=== PATIENT | male | born 1945 | race African-American/Black ===

== ENCOUNTER → 2017-01-09 08:28 | Outpatient (CLI) | payer MEDICARE, BC ==
[2015-08-05 10:38] VITALS: BMI 33.0
[~2017-01-09 08:28] MED LIST: ALEVE220 MG PO; ASPIRIN EC81 M1 PO; BACTROBAN NASAL1 GM NASAL; ELIQUIS2.5 MG PO; FISH OIL 1,0001 CA1 PO; FORTAMET500 MG/BOT PO; LOTREL 10/20 CA1 CAP PO; MULTIPLE VITAMI1 TA1 PO; OXYCODONE HCL5 MG PO; TOPROL XL25 MG PO
== END | disposition home or self-care (01) ==
LOC: D.US 08:28
DX: R94.5 Abnormal results of liver function studies (principal)

== ENCOUNTER 2017-01-16 09:20 | Emergency (ER) | payer MEDICARE, BC ==
[2015-08-05 10:38] VITALS: BMI 33.0
== END 2017-01-16 21:49 | disposition home or self-care (01) ==
LOC: D.ER 09:20
DX: J20.9 Acute bronchitis, unspecified (principal); J06.9 Acute upper respiratory infection, unspecified; E11.9 Type 2 diabetes mellitus without complications; I10 Essential (primary) hypertension

== ENCOUNTER → 2017-01-30 08:35 | Outpatient (CLI) | payer MEDICARE, BC ==
[2015-08-05 10:38] VITALS: BMI 33.0
== END | disposition home or self-care (01) ==
LOC: D.CT 08:35
DX: K76.0 Fatty (change of) liver, not elsewhere classified (principal)

== ENCOUNTER 2018-01-26 18:30 | Emergency (ER) | payer MEDICARE, BC ==
[2015-08-05 10:38] VITALS: BMI 33.0
[2018-01-26 20:33] LABS: APPEARANCE CLEAR (CLEAR); BILIRUBIN NEGATIVE (NEGATIVE); COLOR YELLOW (YELLOW); GLUCOSE NEGATIVE (NEGATIVE); KETONE NEGATIVE (NEGATIVE); NITRITE NEGATIVE (NEGATIVE); PROTEIN NEGATIVE (NEGATIVE); SPECIFIC GRAVITY 1.015 (1.005-1.020); UROBILINOGEN NORMAL (NORMAL)
[2018-01-26 20:44] LABS: BASOPHILS 0.2 % (0-2); EOSINOPHILS 0.9 % (0-7); HEMATOCRIT 41.1 % (42.0-54.0); HEMOGLOBIN 13.1 g/dL (13.5-17.5); IMMATURE GRANULOCYTES 0.2 % (0-5); LYMPHOCYTES 27.4 % (15-50); MCHC 31.9 g/dL (31.0-37.0); MCV 81.5 fL (80.0-100.0); MEAN PLATELET VOLUME 8.7 fL (7.4-10.4); MONOCYTES 8.3 % (2-11); PLATELET COUNT 122 10x3/uL (130-400); RBC 5.04 10x6/uL (4.20-6.10); RDW 15.4 % (11.5-14.5); WBC 5.6 10x3/uL (4.8-10.8)
[2018-01-26 21:02] LABS: ANION GAP 13.2 mmol/L (8-16); BILIRUBIN - TOTAL 0.4 mg/dL (0.2-1.3); CALCIUM 9.4 mg/dL (8.5-10.1); CARBON DIOXIDE 27.4 mmol/L (21.0-32.0); POTASSIUM - SERUM 4.6 mmol/L (3.5-5.1); PROTEIN - SERUM 7.8 g/dL (6.4-8.2)
== END 2018-01-26 22:46 | disposition home or self-care (01) ==
LOC: D.ER 18:30
PROVIDERS: Emergency Medicine
DX: N20.1 Calculus of ureter (principal); E11.9 Type 2 diabetes mellitus without complications; I10 Essential (primary) hypertension

== ENCOUNTER → 2018-01-30 11:03 | Outpatient (CLI) | payer MEDICARE, BC ==
[2015-08-05 10:38] VITALS: BMI 33.0
[~2018-01-30 11:03] MED LIST changes: +HYDROCODON-ACE1 EAC7 PO; +INDOCIN25 MG PO; +KEFLEX500 MG PO; +LEVAQUIN500 MG PO
== END | disposition home or self-care (01) ==
LOC: D.RAD 11:03
DX: N20.0 Calculus of kidney (principal)

== ENCOUNTER 2018-02-01 05:08 | Day surgery (SDC) | payer MEDICARE, BC ==
[~2018-02-01] VITALS: Ht 182.9 cm; Wt 104.3 kg
--- NOTE | ~2018-02-01 | OP ---
PATIENT NAME: REAGAN MURRELL MEDICAL RECORD: [id number] :43 [facility] DATE: SURGEON: ALEJANDRO WILLIS MD DATE OF OPERATION: 02/01/2018 SURGEON: Alejandro Willis MD ANESTHESIA: MAC by Ina Samano CRNA PREOPERATIVE DIAGNOSIS: Right renal stone, 11 mm. PROCEDURE: Right extracorporeal shockwave lithotripsy (ESWL) times 3000 shocks. FINDINGS: Radiodense right renal stones. SPECIMENS: None. ESTIMATED BLOOD LOSS: None. CLINICAL HISTORY: This is a 72-year-old male with a previous history of right renal colic due to an 11-mm renal stone. Earlier this morning, he had a right ureteral stent inserted. Today, he is going to have lithotripsy. Since he was already given antibiotics earlier this morning, we did not give him any further antibiotics. DESCRIPTION OF PROCEDURE: The patient was placed on the treatment table. The stone was targeted in 2 planes. 3000 shocks were given to the stone. It was seen to fragment somewhat. The patient was then taken off the table and he will be sent home for follow up in 2 weeks. TRANSINT:[id number] Voice Confirmation ID: [id number] DOCUMENT ID: [id number] ALEJANDRO WILLIS MD at 1544 CC: [id number] DICTATION DATE: 02/01/18 1441 VACUUM DRUM DRIER OPERATOR: 02/01/18 1451 REG [facility] [address] [place] [address]
--- NOTE | ~2018-02-01 | OP ---
PATIENT NAME: REAGAN MURRELL MEDICAL RECORD: [id number] :43 LOCATION:D.[facility] ADMISSION DATE: SURGEON: PRASANNA WILLIS MD DATE OF OPERATION: 02/01/2018 SURGEON: Prasanna Willis MD ANESTHESIA: General anesthesia by Jacob Arechiga CRNA. PREOPERATIVE DIAGNOSIS: An 11 mm right renal stone. PROCEDURES: Cystoscopy, right retrograde pyelogram, right ureteral stent insertion, 6-[place] Islander x 26 cm with string attached. 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 Single ureteral orifices bilaterally. No bladder tumors. BLOOD LOSS: None. CLINICAL HISTORY: This is a 72-year-old male who presented to the Emergency Room with acute right flank pain due to an 11-mm stone obstructing the right UP junction. This was seen on the CT scan. There is also a 2-mm stone in the left kidney. He has not previously had kidney stones. He does not have any voiding symptoms of BPH. He comes today to have a right ureteral stent insertion. Later today he will have a right lithotripsy. HE IS ALLERGIC TO MORPHINE. He was given Ancef 2 grams IV authorization representative to the OR. DESCRIPTION OF PROCEDURE: The patient was given induction of general anesthesia. He was then placed into dorsal lithotomy position and prepped and draped. A 21-[place] Islander cystoscope with 30-degree lens was used for visualization. The penile urethra was normal. The prostate showed trilobar hyperplasia with a tall bladder neck. He has single ureteral orifices in the bladder. No bladder tumors were seen. On fluoroscopy, we identified a large shadow within the bowel gas that could be the stone. In order to confirm it, we performed a retrograde pyelogram. Diluted contrast was injected into the right ureteral orifice using an open-ended ureteral catheter. No hydronephrosis was seen. The suspected stone was actually the stone within the renal pelvis. We then inserted a guidewire up to the renal pelvis through the lumen of the ureteral catheter. The ureteral catheter was then removed entirely. This stent was inserted over the wire. Once the stent was in correct position, the wire was entirely removed. The distal end of the stent was pushed into the bladder using the pusher. The string on the distal end of the stent is maintained and it was hanging out of the urethra. We will facilitate removal in the future. The bladder was emptied Mckeon through the scope and then the scope was removed. The patient was awakened and brought to the recovery room. Later today, he will have lithotripsy. TRANSINT:[id number] Voice Confirmation ID: [id number] DOCUMENT ID: [id number] OPERATIVE REPORT [id number] REAGAN MURRELL, PRASANNA Rosales MD at 1016 CC: [id number] DICTATION DATE: 02/01/18 08 SECURITY TEST ENGINEER: 02/01/18 1003 REG [place] [id number] [place] [id number]
[~2018-02-01 05:08] MED LIST changes: -HYDROCODON-ACE1 EAC7 PO; -INDOCIN25 MG PO; -KEFLEX500 MG PO; -LEVAQUIN500 MG PO
[2018-02-01 05:59] LABS: HEMATOCRIT 39.8 % (42.0-54.0); HEMOGLOBIN 12.9 g/dL (13.5-17.5); MCH 26.2 pg (26.0-34.0); MCHC 32.4 g/dL (31.0-37.0); MCV 80.9 fL (80.0-100.0); MEAN PLATELET VOLUME 9.2 fL (7.4-10.4); RBC 4.92 10x6/uL (4.20-6.10); RDW 15.2 % (11.5-14.5); WBC 3.7 10x3/uL (4.8-10.8)
[2018-02-01 06:11] LABS: ANION GAP 14.5 mmol/L (8-16); CALCIUM 9.3 mg/dL (8.5-10.1); CREATININE - SERUM 1.7 mg/dL (0.6-1.3); POTASSIUM - SERUM 4.5 mmol/L (3.5-5.1)
[2018-02-01 06:32] VITALS: BP 139/78; Ht 182.9 cm; Wt 104.3 kg
== END 2018-02-01 15:15 | disposition home or self-care (01) ==
LOC: D.OPS 05:08 → D.PAN 07:30 → D.OPS 07:30
PROVIDERS: Anesthesiology
DX: N20.0 Calculus of kidney (principal); I10 Essential (primary) hypertension; E11.9 Type 2 diabetes mellitus without complications; Z01.812 Encounter for preprocedural laboratory examination

== ENCOUNTER 2018-02-09 16:46 | Inpatient (IN) | payer MEDICARE, BC ==
[~2018-02-09] VITALS: Ht 182.9 cm; Wt 104.5 kg
--- NOTE | ~2018-02-09 | OP ---
PATIENT NAME: REAGAN MURRELL MEDICAL RECORD: [id number] :43 LOCATION:D[facility] ADMISSION DATE:02/09/18 SURGEON: ALEJANDRO WILLIS MD DATE OF OPERATION: 02/14/2018 SURGEON: Alejandro Willis MD ANESTHESIA: General anesthesia by Giovany Calvin MD. DIAGNOSES: Right renal stone of 11 mm, right pyelonephritis. PROCEDURES: Cystoscopy, right ureteral stent removal, right percutaneous nephrolithotomy. SPECIMENS: 1. Right ureteral stent. 2. Right renal stone fragments. ESTIMATED BLOOD LOSS: Minimal. CLINICAL HISTORY: This is a 73-year-old male, who initially presented with right flank pain due to a large 11-mm stone obstructing his right UP junction. He had a right ureteral stent inserted and then he underwent right ESWL of the stone. He has not passed any stone fragments out. He came to the hospital with fevers, chills, rigors and a UTI consistent with pyelonephritis of the right side. I obtained a KUB and it showed multiple stone fragments within the kidney, but he really did not have any reduction of the stone burden. Because he is infected now and his stent and the stones are infected, the aim is to get rid of all the infected foreign bodies. He is currently on IV Levaquin. PROCEDURE IN DETAIL: Earlier today, the patient had a right nephroureteral access performed by interventional radiology. The aim is to pull the distal end of the nephroureteral catheter out of the meatus of the penis, so that our wire when we insert it from above will actually come out through the penis and we can clamp it to prevent loss of the tract access. Therefore, the patient was given induction of general anesthesia in supine position. He was then prepped and draped, and rigid cystoscopy was performed. The stent was seen as well as the nephroureteral stent that was placed by interventional radiology. Grasping forceps were used to pull the distal end of the nephroureteral stent out through the penile meatus. We then put the patient into the prone position on the Jamal frame. All pressure points were padded. He was then prepped and draped. The nephroureteral catheter was accessed by placing an Amplatz Super Stiff wire down to its lumen. Once the distal end of it came out through the penile meatus, then the circulating nurse clamped it with a hemostat to prevent loss of the tract. The nephroureteral catheter was then removed entirely and discarded. A small incision was made on either side of the Amplatz Super Stiff wire. A dual-lumen catheter was then placed over the wire and put into the proximal ureter. Through the second lumen of the dual-lumen catheter, we inserted a Sensor wire down to the bladder. Once the wires were in place, the dual lumen catheter was removed, leaving the Sensor wire and the Super Stiff wire in place. We clamped the Sensor wire to the drape to serve as a safety wire. We then used the NephroMax balloon dilator to dilate or tracked along the Super Stiff wire, which we used as our working wire. The balloon was inflated to 20 atmospheres of pressure and the working sheath was placed down to the UP junction level. The balloon was then deflated and completely removed. We OPERATIVE REPORT [id number] REAGAN MURRELL replaced the nephroscope down and immediately saw the stone fragments. These were removed using grasping forceps. Also some of the larger ones were broken down using the [place] LithoClast ultrasonic modality. As we gradually fei our working sheath back, we saw more stone fragments and these were also removed either with the ultrasound modality or with the grasping forceps. Finally, we had no further stone specimens. The stent was removed entirely by pulling it out using the grasping forceps and out through the nephrostomy tube access. The stent was sent to pathology as a separate specimen for identification only. Once we could see no further stones on either with nephroscopy or fluoroscopy, then we placed a 24-N[place]ibian Malecot catheter down the nephrostomy tube to serve as our drainage nephrostomy tube. The safety wire was completely removed. The Super Stiff wire, which had a hemostat on it distal to the penile meatus, was completely removed by pulling it down below. Once we saw the Malecot wings fully expand on the nephrostomy tube, the working sheath was completely removed also. The nephrostomy tube was tied down to the skin using a 2-0 nylon suture. Dressings were applied and the nephrostomy tube was put to bag drainage. The patient was awakened and brought to the recovery room. TRANSINT:[id number] Voice Confirmation ID: [id number] DOCUMENT ID: [id number] ALEJANDRO WILLIS MD at 1947 CC: [id number] DICTATION DATE: 02/14/18 174 DIRECTOR OF ANCILLARY SERVICES: 02/14/18 1816 ADM IN [place] [id number] [place] [id number]
--- NOTE | ~2018-02-09 | HEMODYNAMI ---
PATIENT:REAGAN MURRELL MEDICAL RECORD: [id number] : 43 LOCATION:D.[place] D.2224 ADMISSION DATE: 02/09/18 Generatedon:02/14/20188:48 Patient name: REAGAN MURRELL Patient #: [id number] SSN: : 1945 Date of study: 02/14/2018 Page: Of Hemodynamic Procedure Report Patient Data Patient Demographics Procedure consent was obtained First Name: REAGAN Gender: Male Last Name: NYASIA : 1945 Middle Initial: JEREMY Age: 73 year(s) Patient #: [id number] Race: Black Additional ID: [id number] Contact details Address: [address] [place] [address] State: [place] City: [place] Zip code: [address] Admission Admission Data Admission Date: 02/09/2018 Admission Time: 20:58 Room #: D.2224 Procedure Procedure Types Cath Procedure Peripheral Cath Diagnostic Procedure Nephro Perc Neph Uret Cath Procedure Description Procedure Date Procedure Date: 02/14/2018 Procedure Start Time: 8:30 Procedure End Time: 8:47 Procedure Staff Name Function Emanuel Ball MD Performing Physician Elisa Asencio RT Monitor Yuli Bartlett RN Nurse Brian Mayer RT Scrub Procedure Data Cath Procedure Fluoroscopy Diagnostic fluoroscopy Total fluoroscopy Time: 2.2 time: 2.2 min min Diagnostic fluoroscopy Total fluoroscopy dose: 24 dose: 24 mGy mGy Contrast Material Contrast Material Type Amount (ml) Isovue 300 15 Procedure Medications Medication Administration Route Dosage Lidocaine 1% added to field 20 Heparin Flush Bag added to field 1 bags (1000units/500ml NS) Levaquin I.V.P.B 500 mg Versed I.V. 2 mg Fentanyl I.V. 50 mcg Hemodynamics Rest Pre Cath Intra NCS Post Cath Vital Signs Time Heart Resp SPO2 etCO2 NIBP (mmHg) Rhythm Pain Sedation Rate (ipm) (%) (mmHg) Status Level (bpm) 8:05:38 52 43 99 22.6 No Cuff 2 0 (11) 10(A) degree , No AV pain Block Type II 8:09:37 39 16 100 28.6 No Cuff 2 0 (11) 10(A) degree , No AV pain Block Type II 8:13:37 41 21 99 29.4 No Cuff 2 0 (11) 10(A) degree , No AV pain Block Type II 8:17:37 44 20 100 29.4 No Cuff 2 0 (11) 10(A) degree , No AV pain Block Type II 8:21:36 61 26 99 28.6 148/76(0) 2 0 (11) 10(A) degree , No AV pain Block Type II 8:25:36 49 21 98 26.3 142/74(0) 2 0 (11) 10(A) degree , No AV pain Block Type II 8:29:36 45 23 98 24.1 No Cuff 2 0 (11) 8(A) degree , No AV pain Block Type II 8:31:38 41 22 98 30.1 138/68(92) 2 0 (11) 8(A) degree , No AV pain Block Type II 8:36:38 48 18 99 30.9 Measuring NSR 0 (11) 8(A) , No pain 8:37:08 41 18 99 31.6 116/64(98) NSR 0 (11) 8(A) , No pain 8:41:16 40 19 98 28.6 106/70(86) NSR 0 (11) 8(A) , No pain 8:45:26 40 19 99 29.4 124/85(112) NSR 0 (11) 8(A) , No pain Medications Time Medication Route Dose Verified Delivered Reason Notes Effect iveness by by 7:32:48 Lidocaine 1% added 20ml to vial field 7:33:04 Heparin Flush added 1 Bag to bags (1000units/500ml field NS) 8:25:43 Levaquin I.V.P.B 500mg Emanuel Roldan Per Quinn Bartlett RN protocol 8:28:44 Versed I.V. 2 mg Emanuel Roldan for Mostly Quinn Bartlett RN sedation sleeping @ 8:32:41 8:29:00 Fentanyl I.V. 50 Emanuel Roldan for Mostly mcg Quinn Bartlett RN sedation sleeping @ 8:32:36 Procedure Log Time Note 7:31:58 Brian Mayer RT (R) (CV) sent for patient. Start room use. 7:32:15 Use device set IR Diagnostic 7:32:19 Sterile Angiographic Pack opened to sterile field. 7:32:20 Bag Decanter (2002S) opened to sterile field. 7:32:48 Lidocaine 1% 20ml vial added to field was administered by ; ; 7:33:04 Heparin Flush Bag (1000units/500ml NS) 1 bags added to field was administered by ; ; 7:34:30 KIT, INTRODUCER ACCUSTICK II W/C ([id number]) opened to sterile field. 7:38:45 Time tracking: Regular hours 7:38:54 Plan of Care:Hemodynamics will remain stable., Cardiac rhythm will remain stable., Comfort level will be maintained., Respiratory function will remain adequate., Patient/ family verbilizes understanding of procedure., Procedure tolerated without complication., Recovers from procedure without complications.. 7:39:39 Patient received from Med/Surg to IR Alert and oriented. Tansferred to table in Prone position. 7:39:44 Correct patient and procedure confirmed by team. 7:39:55 Signed procedure consent form obtained from patient. 7:39:56 ECG and BP/O2 sat monitors applied to patient. 7:39:58 Full Disclosure recording started 7:39:59 7:40:05 H&P Date Dictated: 02/14/2018 Within 30 days and on chart.. 7:40:07 Pre-procedure instructions explained to patient. 7:40:07 Pre-procedure instructions explained to patient. 7:40:09 Pre-op teaching completed and patient verbalized understanding. 7:40:10 Family in waiting room. 7:40:13 Patient NPO since Midnight. 7:40:20 Is the patient allergic to Iodine/contrast media? No. 7:40:22 Is patient on blood thinner?No 7:40:23 Patient diabetic? Yes. 7:40:30 If diabetic: On Metformin? No 7:40:31 7:40:32 ----Pre-sedation anethsthesia assessment.---- 7:40:35 Previous problem with sedation/anesthesia? No ? 7:40:37 Snore? Yes 7:40:41 Sleep apnea? No 7:40:44 Sleep apnea? No 7:40:48 Deviated septum? No 7:40:52 Opens mouth fully? Yes 7:40:53 Sticks out tongue? Yes 7:40:55 Airway obstruction? No ? 7:40:58 Dentures? Yes out 7:41:00 7:41:08 Use device set IR Diagnostic 7:41:17 Bag Decanter () opened to sterile field. 7:41:19 Sterile Angiographic Pack opened to sterile field. 7:59:03 IV patent on arrival in right antecubital with 0.9% NaCl at KVO. 7:59:05 Sharps counted by scrub and verified by R.NTruong 7:59:05 Alarms reviewed by R. N. 7:59:10 Lumbar area was prepped with chlora-prep and draped in sterile fashion 8:04:58 Vital chart was started 8:17:01 GLIDE CATHETER 5FR ANGLED 65cm (CG507) opened to sterile field. 8:25:43 Levaquin 500mg I.V.P.B was administered by Yuli Bartlett RN; Per protocol; 8:27:49 Physician arrived 8:27:50 Procedure started. 8:27:50 --------ALL STOP TIME OUT------ 8:27:51 Final Timeout: patient, procedure, and site verified with staff and physician. All members of the team are in agreement. 8:28:17 Lumbar site verified by team. 8:28:44 Versed 2 mg I.V. was administered by Yuli Bartlett RN; for sedation; 8:29:00 Fentanyl 50 mcg I.V. was administered by Yuli Bartlett RN; for sedation; 8:30:46 Local anesthetic to Lumbar area with Lidocaine 1% by Emanuel Ball MD.INITIAL ACCESS ONLY 8:32:36 Effectiveness of Fentanyl delivered @ 8:29:00 is: Mostly sleeping 8:32:41 Effectiveness of Versed delivered @ 8:28:44 is: Mostly sleeping 8:35:53 ROADRUNNER .035 145 glide wire ([id number]) opened to sterile field. 8:37:06 road runner wire wire advanced. 8:38:16 5 upper sorbian glidecath placed into right kidney 8:38:23 Procedure ended.(Physican Out) 8:38:46 Fluoroscopy time 02.20 minutes. 8:38:55 Fluoroscopy dose: 24 mGy 8:38:55 Flurop Dose total: 24 8:39:03 Contrast amount:Isovue 300 15ml. 8:39:05 Sharps counted by scrub and verified by R.N. 8:39:10 Insertion/operative site no bleeding no hematoma. 8:39:22 Post-op/insertion site Right Lumbar area dressed using a 4 x 4 and Tegaderm. 8:41:38 Post Lumbar area:stable 8:41:50 Post procedure instruction explained to patient.Patient verbalizes understanding. 8:41:54 Procedure and supply charges have been captured, reviewed, submitted and are correct. 8:41:59 See physician's report for complete and final results. 8:47:15 Report given to Med/Surg. 8:47:22 Patient transfered to Med/Surg with Bed. 8:47:30 Procedure ended. 8:47:30 Full Disclosure recording stopped 8:48:07 Vital chart was stopped Device Usage Item Name Manufacture Quantity Catalog Hospital Part Current Minimal Lot# / Number Charge Number Stock Stock Serial# Code Sterile Cardinal 2 [id number] 5 Angiographic Health Pack Bag Decanter Microtek 2 [id number] 5 () [employer] [facility] 1 [id number] 5 [id number] INTRODUCER Scientific ACCUSTICK II W/C ([id number]) GLIDE Terumo 1 [id number] [id number] 5 CATHETER 5FR ANGLED 65cm (CG507) [employer] [facility] 1 [id number] 5 [id number] .035 145 glide wire ([id number]) Signature Audit [place] Stage Time Signature Unsigned Intra-Procedure 02/14/2018 Elisa 8:48:04 AM Elif KWON (R) (CV) Signatures Monitor : Elisa Signature : Elif RT Date : Time : [place] [address] [place] [address]
[2018-02-09 17:33] LABS: BASOPHILS 0.1 % (0-2); EOSINOPHILS 0 % (0-7); HEMATOCRIT 38.7 % (42.0-54.0); HEMOGLOBIN 12.9 g/dL (13.5-17.5); IMMATURE GRANULOCYTES 0.5 % (0-5); LYMPHOCYTES 9.5 % (15-50); MCH 26.4 pg (26.0-34.0); MCHC 33.3 g/dL (31.0-37.0); MCV 79.1 fL (80.0-100.0); MEAN PLATELET VOLUME 9.2 fL (7.4-10.4); MONOCYTES 12.2 % (2-11); NEUTROPHILS 77.7 % (40-80); PLATELET COUNT 105 10x3/uL (130-400); RBC 4.89 10x6/uL (4.20-6.10); RDW 15.4 % (11.5-14.5); WBC 12.9 10x3/uL (4.8-10.8)
[2018-02-09 17:55] LABS: ALBUMIN 3.5 g/dL (3.4-5.0); ALKALINE PHOSPHATASE 45 U/L (46-116); ALT (SGPT) 36 U/L (10-68); CALC OSMOLALITY 288 mosm/kg (275-300); CALCIUM 9.4 mg/dL (8.5-10.1); CARBON DIOXIDE 25.7 mmol/L (21.0-32.0); CHLORIDE - SERUM 103 mmol/L (98-107); CREATININE - SERUM 3.2 mg/dL (0.6-1.3); GLUCOSE 160 mg/dL (74-106); POTASSIUM - SERUM 3.9 mmol/L (3.5-5.1); SODIUM 140 mmol/L (136-145); UREA NITROGEN 33 mg/dL (7-18); eGFR NON AFRICAN AMERICAN 20 mL/min (90-120)
[2018-02-09 18:04] LABS: CKMB 1.9 U/L (0.0-3.6); MAGNESIUM - SERUM 1.7 mg/dL (1.8-2.4); PRO BNP 1555 pg/mL (0-125); TROPONIN-I < 0.017 ng/mL (0.000-0.060)
[2018-02-09 18:05] LABS: CREATINE KINASE 1144 UL (21-232)
[2018-02-09 18:11] LABS: LIPASE 122 U/L (73-393)
[2018-02-09 18:13] LABS: KETONE - SERUM NEGATIVE (NEGATIVE)
[2018-02-09 18:27] LABS: APPEARANCE HAZY (CLEAR); COLOR DK YELLOW (YELLOW); NITRITE NEGATIVE (NEGATIVE); PROTEIN 1+ mg/dL (NEGATIVE); SPECIFIC GRAVITY 1.015 (1.005-1.020)
[2018-02-09 18:28] LABS: BILIRUBIN NEGATIVE (NEGATIVE); GLUCOSE NEGATIVE (NEGATIVE); KETONE NEGATIVE (NEGATIVE); UROBILINOGEN NORMAL (NORMAL)
[2018-02-09 18:29] LABS: BACTERIA MANY /hpf (NONE SEEN); WHITE CELLS - URINE >50 /hpf (0-5)
[2018-02-10] VITALS (7 sets, daily range): BP systolic 115–141; BP diastolic 42–66; Ht 182.9 cm; Wt 104.5 kg
[2018-02-11 02:38] VITALS: BP 125/83
[2018-02-11 05:17] LABS: ANION GAP 14.6 mmol/L (8-16); BILIRUBIN - TOTAL 0.3 mg/dL (0.2-1.3); CALCIUM 8.2 mg/dL (8.5-10.1); CARBON DIOXIDE 26.2 mmol/L (21.0-32.0); POTASSIUM - SERUM 3.8 mmol/L (3.5-5.1); PROTEIN - SERUM 6.9 g/dL (6.4-8.2)
[2018-02-11 05:19] LABS: ALBUMIN 2.6 g/dL (3.4-5.0); CREATININE - SERUM 2.1 mg/dL (0.6-1.3)
[2018-02-11 05:23] LABS: BASOPHILS 0.2 % (0-2); EOSINOPHILS 0.3 % (0-7); HEMATOCRIT 34.5 % (42.0-54.0); HEMOGLOBIN 11.3 g/dL (13.5-17.5); IMMATURE GRANULOCYTES 0.2 % (0-5); LYMPHOCYTES 22.2 % (15-50); MCH 25.9 pg (26.0-34.0); MCHC 32.8 g/dL (31.0-37.0); MCV 78.9 fL (80.0-100.0); MEAN PLATELET VOLUME 9.7 fL (7.4-10.4); NEUTROPHILS 61.1 % (40-80); PLATELET COUNT 99 10x3/uL (130-400); RBC 4.37 10x6/uL (4.20-6.10); RDW 15.6 % (11.5-14.5)
[2018-02-11 05:25] LABS: WBC 6.4 10x3/uL (4.8-10.8)
[2018-02-11 05:29] VITALS: BP 112/85
[2018-02-11 08:00] VITALS: BP 132/78
[2018-02-11 11:30] VITALS: BP 138/68
[2018-02-11 15:30] VITALS: BP 143/58
[2018-02-11 22:17] VITALS: BP 133/82
[2018-02-12 00:57] VITALS: BP 121/48
[2018-02-12 06:23] LABS: ALBUMIN 2.5 g/dL (3.4-5.0); ANION GAP 14.2 mmol/L (8-16); BILIRUBIN - TOTAL 0.3 mg/dL (0.2-1.3); CALCIUM 8.4 mg/dL (8.5-10.1); CARBON DIOXIDE 25.8 mmol/L (21.0-32.0); CREATININE - SERUM 1.8 mg/dL (0.6-1.3); PROTEIN - SERUM 6.7 g/dL (6.4-8.2)
[2018-02-12 06:54] LABS: BASOPHILS 0 % (0-2); HEMATOCRIT 33.2 % (42.0-54.0); HEMOGLOBIN 10.7 g/dL (13.5-17.5); IMMATURE GRANULOCYTES 0.4 % (0-5); LYMPHOCYTES 29.7 % (15-50); MCH 25.4 pg (26.0-34.0); MCHC 32.2 g/dL (31.0-37.0); MCV 78.7 fL (80.0-100.0); MEAN PLATELET VOLUME 9.6 fL (7.4-10.4); MONOCYTES 14.9 % (2-11); PLATELET COUNT 111 10x3/uL (130-400); RBC 4.22 10x6/uL (4.20-6.10); RDW 15.7 % (11.5-14.5)
[2018-02-12 07:02] VITALS: BP 127/66
[2018-02-12 11:09] VITALS: BP 122/55
[2018-02-12 15:00] VITALS: BP 134/59
[2018-02-12 23:59] VITALS: BP 132/51
[2018-02-13 04:17] VITALS: BP 143/70
[2018-02-13 06:20] LABS: BASOPHILS 0.2 % (0-2); EOSINOPHILS 1.1 % (0-7); HEMATOCRIT 36.2 % (42.0-54.0); IMMATURE GRANULOCYTES 1.1 % (0-5); LYMPHOCYTES 22.7 % (15-50); MCH 25.9 pg (26.0-34.0); MCHC 33.1 g/dL (31.0-37.0); MCV 78.2 fL (80.0-100.0); MEAN PLATELET VOLUME 8.9 fL (7.4-10.4); MONOCYTES 12.8 % (2-11); NEUTROPHILS 62.1 % (40-80); PLATELET COUNT 113 10x3/uL (130-400); RBC 4.63 10x6/uL (4.20-6.10); RDW 15.3 % (11.5-14.5); WBC 5.4 10x3/uL (4.8-10.8)
[2018-02-13 06:52] LABS: ALBUMIN 2.8 g/dL (3.4-5.0); ANION GAP 14.5 mmol/L (8-16); BILIRUBIN - TOTAL 0.29 mg/dL (0.2-1.3); CALCIUM 9.3 mg/dL (8.5-10.1); CARBON DIOXIDE 25.5 mmol/L (21.0-32.0); CREATININE - SERUM 1.6 mg/dL (0.6-1.3); PROTEIN - SERUM 7.7 g/dL (6.4-8.2)
[2018-02-13 07:00] VITALS: BP 131/65
[2018-02-13 11:04] VITALS: BP 133/75
[2018-02-13 15:15] VITALS: BP 129/79
[2018-02-13 20:00] VITALS: BP 136/56
[2018-02-14] VITALS (15 sets, daily range): BP systolic 108–141; BP diastolic 43–78
[2018-02-14 06:36] LABS: BASOPHILS 0.2 % (0-2); EOSINOPHILS 1.8 % (0-7); HEMATOCRIT 35.9 % (42.0-54.0); HEMOGLOBIN 11.5 g/dL (13.5-17.5); IMMATURE GRANULOCYTES 1.4 % (0-5); LYMPHOCYTES 27.1 % (15-50); MCH 25.4 pg (26.0-34.0); MCV 79.2 fL (80.0-100.0); MEAN PLATELET VOLUME 9.3 fL (7.4-10.4); MONOCYTES 9.5 % (2-11); RBC 4.53 10x6/uL (4.20-6.10); RDW 15.6 % (11.5-14.5); WBC 5.1 10x3/uL (4.8-10.8)
[2018-02-14 06:51] LABS: PLATELET COUNT 142 10x3/uL (130-400)
[2018-02-14 07:06] LABS: APTT 36.2 SECONDS (22.8-39.4); INR 1.05 (0.85-1.17); PROTIME 13.3 SECONDS (11.6-15.0)
[2018-02-14 07:19] LABS: ALBUMIN 2.7 g/dL (3.4-5.0); ANION GAP 13.1 mmol/L (8-16); BILIRUBIN - TOTAL 0.27 mg/dL (0.2-1.3); CALCIUM 9.2 mg/dL (8.5-10.1); CREATININE - SERUM 1.6 mg/dL (0.6-1.3); POTASSIUM - SERUM 4.1 mmol/L (3.5-5.1); PROTEIN - SERUM 7.2 g/dL (6.4-8.2)
[2018-02-15 04:09] VITALS: BP 118/57
[2018-02-15 05:03] LABS: BASOPHILS 0.2 % (0-2); EOSINOPHILS 0.2 % (0-7); HEMATOCRIT 37.6 % (42.0-54.0); IMMATURE GRANULOCYTES 0.9 % (0-5); LYMPHOCYTES 20.7 % (15-50); MCH 25.7 pg (26.0-34.0); MCHC 31.9 g/dL (31.0-37.0); MCV 80.5 fL (80.0-100.0); MEAN PLATELET VOLUME 8.8 fL (7.4-10.4); MONOCYTES 9.9 % (2-11); NEUTROPHILS 68.1 % (40-80); PLATELET COUNT 159 10x3/uL (130-400); RBC 4.67 10x6/uL (4.20-6.10); RDW 15.6 % (11.5-14.5); WBC 5.6 10x3/uL (4.8-10.8)
[2018-02-15 05:18] LABS: ALBUMIN 2.9 g/dL (3.4-5.0); ANION GAP 14.6 mmol/L (8-16); BILIRUBIN - TOTAL 0.3 mg/dL (0.2-1.3); CALCIUM 8.9 mg/dL (8.5-10.1); CARBON DIOXIDE 24.7 mmol/L (21.0-32.0); CREATININE - SERUM 1.6 mg/dL (0.6-1.3); POTASSIUM - SERUM 4.3 mmol/L (3.5-5.1); PROTEIN - SERUM 7.7 g/dL (6.4-8.2)
[2018-02-15 08:55] VITALS: BP 117/63
[2018-02-15 11:45] VITALS: BP 147/75
[2018-02-15 15:42] VITALS: BP 120/59
[2018-02-15 20:55] VITALS: BP 139/73
[2018-02-15 23:17] VITALS: BP 106/58
[2018-02-16 04:24] VITALS: BP 130/52
[2018-02-16 09:07] VITALS: BP 178/95
[2018-02-16 10:55] LABS: BASOPHILS 0.2 % (0-2); EOSINOPHILS 0.9 % (0-7); HEMATOCRIT 37.4 % (42.0-54.0); HEMOGLOBIN 12.2 g/dL (13.5-17.5); IMMATURE GRANULOCYTES 0.9 % (0-5); LYMPHOCYTES 23.5 % (15-50); MCH 25.9 pg (26.0-34.0); MCHC 32.6 g/dL (31.0-37.0); MCV 79.4 fL (80.0-100.0); MEAN PLATELET VOLUME 8.9 fL (7.4-10.4); MONOCYTES 5.8 % (2-11); NEUTROPHILS 68.7 % (40-80); PLATELET COUNT 181 10x3/uL (130-400); RBC 4.71 10x6/uL (4.20-6.10); RDW 15.5 % (11.5-14.5); WBC 6.6 10x3/uL (4.8-10.8)
[2018-02-16 11:13] LABS: ALBUMIN 3.1 g/dL (3.4-5.0); ANION GAP 11.9 mmol/L (8-16); BILIRUBIN - TOTAL 0.3 mg/dL (0.2-1.3); CREATININE - SERUM 1.7 mg/dL (0.6-1.3); POTASSIUM - SERUM 3.9 mmol/L (3.5-5.1)
[2018-02-16 12:36] VITALS: BP 164/83
[2018-02-16] MEDS ORDERED: HYDROCODON-ACE1 EAC7 PO (14:29)
[2018-02-16] MEDS ORDERED: LEVAQUIN500 MG PO (14:30)
[2018-02-27 10:18] LABS: CALCULI - CA OXALATE MONOHYDR 93 % (()); CALCULI - COLOR Brown (()); CALCULI - COMMENT Note: (()); CALCULI - WEIGHT 370.5 mg (())
== END 2018-02-16 14:34 | disposition home or self-care (01) | DRG 659 ==
LOC: D.ER 16:46 → D.EDHOLD 20:58 → D.MS 20:58
PROVIDERS: Family Medicine; Family Medicine Adult Medicine; Internal Medicine Nephrology; Nurse Practitioner Family; Specialist; Urology
PROC: 0T9330Z Drainage of Right Kidney Pelvis with Drainage Device, Percutaneous Approach (ICD-10-PCS; 2018-02-14)
PROC: 0TP98DZ Removal of Intraluminal Device from Ureter, Via Natural or Artificial Opening Endoscopic (ICD-10-PCS; 2018-02-14)
PROC: 0TC33ZZ Extirpation of Matter from Right Kidney Pelvis, Percutaneous Approach (ICD-10-PCS; principal; 2018-02-14 08:27)
PROC: 0TP5X0Z Removal of Drainage Device from Kidney, External Approach (ICD-10-PCS; 2018-02-16)
DX: T83.593A Infection and inflammatory reaction due to other urinary stents, initial encounter (principal); A41.9 Sepsis, unspecified organism; N17.9 Acute kidney failure, unspecified; N20.1 Calculus of ureter; E11.22 Type 2 diabetes mellitus with diabetic chronic kidney disease; E11.65 Type 2 diabetes mellitus with hyperglycemia; I12.9 Hypertensive chronic kidney disease with stage 1 through stage 4 chronic kidney disease, or unspecified chronic kidney disease; N18.9 Chronic kidney disease, unspecified; Z79.1 Long term (current) use of non-steroidal anti-inflammatories (NSAID); N20.0 Calculus of kidney; Z87.442 Personal history of urinary calculi; E83.42 Hypomagnesemia; R53.1 Weakness; N28.1 Cyst of kidney, acquired; I44.1 Atrioventricular block, second degree

== ENCOUNTER 2018-02-27 07:50 | Inpatient (IN) | payer MEDICARE, BC ==
[~2018-02-27] VITALS: Ht 182.9 cm; Wt 103.2 kg
--- NOTE | ~2018-02-27 | HEMODYNAMI ---
PATIENT:REAGAN MURRELL MEDICAL RECORD: [id number] : 41 LOCATION:[facility] ADMISSION DATE: 02/27/18 Generatedon:02/27/201813:09 Patient name: REAGAN MURRELL Patient #: [id number] SSN: : 1945 Date of study: 02/27/2018 Page: Of Hemodynamic Procedure Report Patient Data Patient Demographics First Name: REAGAN Gender: Male Last Name: NYASIA : 1945 Middle Initial: JEREMY Age: 73 year(s) Patient #: [id number] Race: Black Additional ID: [id number] Contact details [address]: [address] [place] [address] State: [place] City: [place] Zip code: [address] Past Medical History Allergies Allergen Reaction Date Comments Reported Other allergy 02/27/2018 Morphine. Admission Admission Data Admission Date: 02/27/2018 Admission Time: 7:50 Admit Source: Other Lab Results Lab Result Date: 02/27/2018 Lab Result Time: 8:15 Biochemistry Name Units Result Min Max BUN mg/dl 26 --(----)-* 7 18 Creatinine mg/dl 1.6 --(----)-* 0.6 1.3 CBC Name Units Result Min Max Hematocrit % 37.2 *-(----)-- 42 54 Hemoglobin g/dl 12.1 *-(----)-- 13.5 17.5 Procedure Procedure Types Cath Procedure Diagnostic Procedure PPM/ICD PPM Dual Implant Sedation Charges Moderate Sedation up to 30 minutes Procedure Description Procedure Date Procedure Date: 02/27/2018 Procedure Start Time: 12:19 Procedure End Time: 13:03 Procedure Staff Name Function Yfn Tejada MD Performing Physician Chandler Cason RT Monitor Baylee Tyson RT Scrub Sammi Nair RN Nurse Procedure Data Cath Procedure Fluoroscopy Diagnostic fluoroscopy Total fluoroscopy Time: 6.4 time: 6.4 min min Diagnostic fluoroscopy Total fluoroscopy dose: dose: 237.73 mGy 237.73 mGy Contrast Material Contrast Material Type Amount (ml) Isovue 300 0 Estimated blood loss: 5 ml Procedure Complications No complications Procedure Medications Medication Administration Route Dosage Ancef (1Gm/50ml NS) I.V.P.B 1 g 0.9% NaCl I.V. 50 ml/hr Lidocaine 1% added to field 20 Ancef Irrigation Topical 1 g (1gm/500ml NS) Versed I.V. 2 mg Fentanyl I.V. 50 mcg Versed I.V. 1 mg Fentanyl I.V. 50 mcg Versed I.V. 1 mg Hemodynamics Rest HGB: 12.1 (g/dl) Heart Rate: 57 (bpm) Snapshots Pre Cath Intra NCS Post Cath Vital Signs Time Heart Resp SPO2 etCO2 NIBP (mmHg) Rhythm Pain Sedation Rate (ipm) (%) (mmHg) Status Level (bpm) 12:05:05 55 20 99 162/83(136) NSR 0 (11) 10(A) , No pain 12:09:41 63 16 99 34.1 153/75(121) NSR 0 (11) 10(A) , No pain 12:14:16 60 14 99 31.9 144/77(117) NSR 0 (11) 10(A) , No pain 12:18:40 62 16 98 29.7 136/78(106) NSR 0 (11) 10(A) , No pain 12:23:10 65 18 98 29.7 135/78(107) NSR 0 (11) 10(A) , No pain 12:27:41 67 17 97 35.6 119/75(102) NSR 0 (11) 10(A) , No pain 12:31:57 67 18 96 37.9 140/87(108) NSR 0 (11) 9(A) , No pain 12:36:25 73 19 97 29.7 143/85(138) NSR 0 (11) 9(A) , No pain 12:40:55 91 15 98 23.7 103/80(97) NSR 0 (11) 9(A) , No pain 12:46:25 62 17 97 14.8 140/85(98) NSR 0 (11) 9(A) , No pain 12:50:41 68 27 98 17 105/85(99) NSR 0 (11) 10(A) , No pain 12:56:09 64 23 97 10.4 145/83(108) NSR 0 (11) 10(A) , No pain 13:00:54 65 14 99 0 153/77(113) NSR 0 (11) 10(A) , No pain Medications Time Medication Route Dose Verified Delivered Reason Notes Effectiv eness by by 12:09:00 Ancef I.V.P.B 1 g Yfn Yfn used for (1Gm/50ml Terrell Tejada MD procedure NS) 12:09:10 0.9% NaCl I.V. 50 Yfn Yfn Per ml/hr Terrell Tejada MD physician 12:09:23 Lidocaine added 20ml Yfn Yfn for local 1% to vial Terrell Tejada MD anesthetic field x2 MD 12:09:34 Ancef Topical 1 g Yfn Yfn used for Irrigation Terrell Tejada MD procedure (1gm/500ml NS) 12:14:23 Versed I.V. 2 mg Yfn Buffie for Terrell Nair RN sedation 12:14:29 Fentanyl I.V. 50 Yfn Buffie for mcg Terrell Nair RN sedation 12:23:37 Versed I.V. 1 mg Yfn Buffie for Terrell Nair RN sedation 12:23:44 Fentanyl I.V. 50 Yfn Buffie for mcg Terrell Nair RN sedation 13:00:18 Versed I.V. 1 mg Yfn Buffie for Terrell Nair RN sedation Procedure Log Time Note 11:34:59 Use device set NORRED PPM 11:35:43 Baylee Counts RT(R) sent for patient. Start room use. 11:35:43 Time tracking: Regular hours 11:35:48 Plan of Care:Hemodynamics will remain stable., Cardiac rhythm will remain stable., Comfort level will be maintained., Respiratory function will remain adequate., Patient/ family verbilizes understanding of procedure., Procedure tolerated without complication., Recovers from procedure without complications.. 11:40:55 Admit Source: Other 11:41:15 H&P Date Dictated: 02/21/2018 Within 30 days and on chart., H&P Addendum completed by physician on day of procedure. (MUST COMPLETE FOR ALL OUTPATIENTS). 11:42:42 Patient received from Pre/Post Procedure Room to CCL 3 Alert and oriented. Tansferred to table in Supine position. 11:42:47 Warm blankets applied, and ghazal hugger turned on for patient comfort. 11:43:01 Correct patient and procedure confirmed by team. 11:43:02 ECG and BP/O2 sat monitors applied to patient. 11:44:42 Pre-procedure instructions explained to patient. 11:44:43 Pre-op teaching completed and patient verbalized understanding. 11:44:45 Family in waiting room. 11:45:01 Patient NPO since Midnight. 11:45:24 Patient allergic to Other allergyMorphine. 11:45:40 Is the patient allergic to Iodine/contrast media? No. 11:52:13 Is patient on blood thinner?No 11:52:14 Patient diabetic? Yes. 11:52:17 If diabetic: On Metformin? No 11:52:20 Previous problem with sedation/anesthesia? No ? 11:52:23 Snore? Yes 11:52:24 Sleep apnea? No 11:52:25 Deviated septum? No 11:52:26 Opens mouth fully? Yes 11:52:27 Sticks out tongue? Yes 11:52:37 Airway obstruction? Yes emphysema 11:52:40 Dentures? No ? 12:00:05 Patient pain scale 0/10 ?. 12:00:18 IV patent on arrival in right forearm with 0.9% NaCl at [facility]. 12:00:59 Lab results completed and on chart. 12:03:35 Vital chart was started 12:03:40 Rhythm: sinus rhythm 12:03:42 Full Disclosure recording started 12:05:50 Left chest area was prepped with chlora-prep and draped in sterile fashion 12:05:51 Alarms reviewed by R. N. 12:05:52 Sharps counted by scrub and verified by R.N. 12:06:32 Medtronic Advisa MRI PPM Dual Generator [id number] opened to sterile field. 12:06:36 Medtronic 5076-52 PPM Lead opened to sterile field. 12:06:38 Medtronic 4074-58 PPM Lead opened to sterile field. 12:06:42 MICROPUNCTURE 4FR Cook (F73352) opened to sterile field. 12:06:49 MICROPUNCTURE 4FR Cook (F28886) opened to sterile field. 12:06:50 MICROPUNCTURE 4FR Cook ([id number]) opened to sterile field. 12:07:02 Stapler Skin 35W Proximate Plus (PMW35) opened to sterile field. 12:07:03 Tegaderm 4 x 4 (1626W) opened to sterile field. 12:07:03 Cautery Tip Adolescent Counselor opened to sterile field. 12:07:04 Cautery Pushbutton Pencil opened to sterile field. 12:07:07 Immobilizer Extra Large opened to sterile field. 12:07:08 2-0 Silk 685H opened to sterile field. 12:07:09 2-0 Vicryl Plus [id number] opened to sterile field. 12:07:31 Baseline sample Acquired. 12:09:00 Ancef (1Gm/50ml NS) 1 g I.V.P.B was administered by Yfn Tejada MD; used for procedure; 12:09:10 0.9% NaCl 50 ml/hr I.V. was administered by Yfn Tejada MD; Per physician; 12:09:23 Lidocaine 1% 20ml vial x2 added to field was administered by Yfn Tejada MD; for local anesthetic; 12:09:34 Ancef Irrigation (1gm/500ml NS) 1 g Topical was administered by Yfn Tejada MD; used for procedure; 12:12:21 Physician arrived 12:12:21 --------ALL STOP TIME OUT------ 12:12:22 Final Timeout: patient, procedure, and site verified with staff and physician. All members of the team are in agreement. 12:12:25 Left chest site verified by team. 12:12:27 Physical assessment completed. ASA score P 2 - A patient with mild systemic disease as per Yfn Tejada MD. 12:12:30 Sedation plan: IV Moderate Sedation Medication:Versed, Fentanyl 12:13:51 Lab Result : BUN 26 mg/dl 12::51 Lab Result : Creatinine 1.6 mg/dl 12::51 Lab Result : Hemoglobin 12.1 g/dl 12::51 Lab Result : Hematocrit 37.2 % 12:14:23 Versed 2 mg I.V. was administered by Sammi Nair RN; for sedation; 12:14:29 Fentanyl 50 mcg I.V. was administered by Sammi Nair RN; for sedation; 12:19:05 Medtronic community health program representative ricky frost present for procedure. 12:19:14 Pre sharps counted by scrub and verified by RN: Sutures: 2; Sponges: 5; Stick needles: 4; Skin needles: 2; Blade: 1; Cautery: 1 12:19:17 Grounding pad site Right thigh. 12:19:18 Grounding pad site free from injury. 12:19:20 Procedure started. 12:19:26 Lidocaine 1% was administered to left subclavicular area by Yfn Tejada MD . 12:23:37 Versed 1 mg I.V. was administered by Sammi Nair RN; for sedation; 12:23:44 Fentanyl 50 mcg I.V. was administered by Sammi Nair RN; for sedation; 12:24:11 Incision made to left subclavicular area. 12:28:25 Generator pocket made/opened. 12:28:58 Access obtained with 4Fr micropunture. 12:31:17 Left subclavian vein accessed with 7Fr Peel Away Sheath. 12:33:04 Access obtained with 4Fr micropunture. 12:33:08 Left subclavian vein accessed with 7Fr Peel Away Sheath. 12:35:10 Ventricular lead inserted and advanced. 12:35:15 Atrial lead inserted and advanced. 12:40:04 Ventricular lead positioned. 12:40:13 Ventricular lead tested. 12:41:09 Ventricular lead attachment was completed with 2-0 silk. 12:44:56 Atrial lead positioned. 12:49:18 Atrial lead tested. 12:53:05 Atrial lead attachment was completed with 2-0 silk. 12:54:21 PPM Dual was attached to lead(s) and inserted into pocket. 12:55:40 Parameters-- Generator: Mode: DDDR. Lower Rate: 60bpm. Upper Rate: 120bpm. 12:55:57 Parameters--Ventricular P/R Wave: 6.9mV. Current: 0.2mA; Threshold: 0.3V; Impedence: 1308OHMS. 12:57:00 Parameters--Atrial P/R Wave: 3.7mV. Current: 2.5mA; Threshold: 1.2V; Impedence: 593OHMS. 12:57:06 Subcutaneous closure was completed with 2-0 vicryl. 12:58:21 Skin closure was completed with 35mm Porter. 12:58:25 Procedure ended.(Physican Out) 13:00:18 Versed 1 mg I.V. was administered by Sammi Nair RN; for sedation; 13:01:14 Post sharps counted by scrub and verified by RN: Sutures: 2; Sponges: 5; Stick needles: 4; Skin needles: 2; Blade: 1; Cautery: 1 13:01:21 Fluoroscopy time 06.40 minutes. 13::28 Fluoroscopy dose: 237.73 mGy 13:01:28 Flurop Dose total: 237.73 13:01:32 Contrast amount:Isovue 300 0ml. 13:01:33 Sharps counted by scrub and verified by R.N. 13:01:39 Insertion/operative site no bleeding no hematoma. 13:01:45 Post-op/insertion site Left Subclavian vein dressed using a gauze eyepad and tegaderm. 13:01:53 Post left subclavian vein:stable, soft, clean and dry 13:01:54 Post Procedure Pulses reassessed and unchanged 13:01:58 Post-procedure physical assessment completed. ASA score P 2 - A patient with mild systemic disease as per Yfn Tejada MD. 13:02:04 Post procedure rhythm: paced 13:02:23 Estimated blood loss: 5 ml 13:02:25 Post procedure instruction explained to patient.Patient verbalizes understanding. 13:02:25 Patient needs reinforcement of post procedure teaching. 13:03:11 Procedure type changed to Cath procedure, Diagnostic procedure, PPM/ICD, PPM Dual Implant, Sedation Charges, Moderate Sedation up to 30 minutes 13:03:43 Procedure and supply charges have been captured, reviewed, submitted and are correct. 13:03:46 Procedure Complication : No complications 13:03:48 Vital chart was stopped 13:03:49 See physician's report for complete and final results. 13:03:53 Report given to Pre/Post Procedure Room. 13:03:56 Patient transfered to Pre/Post Procedure Room with Stretcher. 13:03:58 Procedure ended. 13:03:58 Full Disclosure recording stopped 13:04:03 End room use (Document Last) Device Usage Item Name Manufacture Quantity Catalog Hospital Part Current Minimal Lot# / Number Charge Number Stock Stock Serial# Code Medtronic Medtronic 1 A2DR01 [id number] 5 SN Advisa MRI [id number] PPM Dual Exp: Generator 2019-04-23 A2DR01 Medtronic Medtronic 1 5076-52 [id number] [id number] 5 SN: 5076-52 PPM [id number] Lead Exp: 2019-12-08 Medtronic Medtronic 1 4074-58 777667 912257 5 SN 4074-58 PPM [id number] Lead Exp: 2019-07-24 MICROPUNCTURE [facility] 3 [id number] 755848 332906 258483 5 4FR Gaston (J09779) Stapler Skin Unknown 1 PMW35 048431 959057 [id number] 5 35W Proximate Plus (PMW35) Tegaderm 4 x 3M 1 1626W 394241 113087 522967 5 4 (1626W) Cautery Tip Microtek 1 [id number] 822251 888044 651319 5 [employer] Cautery Microtek 1 [id number] 983412 71477 920484 5 [facility] Pencil Immobilizer Cardinal 1 [id number] 740713 817082 275058 5 Extra Large Health 2-0 Silk 685H Ethicon 1 685H 462031 97228 865701 5 2-0 Vicryl Ethicon 1 [id number] 259654 209026 918189 5 Plus [id number] Signature Audit [place] Stage Time Signature Unsigned Intra-Procedure 02/27/2018 Chandler Cason 1:09:03 PM RT(R) Signatures Monitor : Chandler Cason RT Signature : Date : Time : [facility] [address] [place] [address]
[~2018-02-27 07:50] MED LIST changes: +HYDROCODON-ACE1 EAC7 PO; +LEVAQUIN500 MG PO
[2018-02-27] MEDS ORDERED: INDOCIN25 MG PO (08:06)
[2018-02-27 08:14] VITALS: BP 166/73; BMI 29.9
[2018-02-27 08:29] LABS: HEMATOCRIT 37.2 % (42.0-54.0); HEMOGLOBIN 12.1 g/dL (13.5-17.5); MCH 25.5 pg (26.0-34.0); MCHC 32.5 g/dL (31.0-37.0); MCV 78.3 fL (80.0-100.0); MEAN PLATELET VOLUME 8.7 fL (7.4-10.4); RBC 4.75 10x6/uL (4.20-6.10); WBC 3.9 10x3/uL (4.8-10.8)
[2018-02-27 08:39] LABS: APTT 30.7 SECONDS (22.8-39.4); INR 1.08 (0.85-1.17); PROTIME 13.6 SECONDS (11.6-15.0)
[2018-02-27 08:43] LABS: ANION GAP 10.6 mmol/L (8-16); CALCIUM 9.5 mg/dL (8.5-10.1); CARBON DIOXIDE 27.9 mmol/L (21.0-32.0); CREATININE - SERUM 1.6 mg/dL (0.6-1.3); POTASSIUM - SERUM 4.5 mmol/L (3.5-5.1)
[2018-02-27 16:34] VITALS: BP 122/68
[2018-02-27 21:30] VITALS: BP 157/66
[2018-02-28 01:12] VITALS: BP 144/63
[2018-02-28 04:31] VITALS: BP 127/57; Ht 182.9 cm; Wt 103.2 kg
[2018-02-28 07:50] VITALS: BP 159/84
[2018-02-28] MEDS ORDERED: KEFLEX500 MG PO (09:13)
== END 2018-02-28 11:45 | disposition home or self-care (01) | DRG 244 ==
LOC: D.CATH 07:50 → D.M2 15:21
PROVIDERS: Internal Medicine Cardiovascular Disease
PROC: 02H63JZ Insertion of Pacemaker Lead into Right Atrium, Percutaneous Approach (ICD-10-PCS; 2018-02-27)
PROC: 02HK3JZ Insertion of Pacemaker Lead into Right Ventricle, Percutaneous Approach (ICD-10-PCS; 2018-02-27)
PROC: 0JH606Z Insertion of Pacemaker, Dual Chamber into Chest Subcutaneous Tissue and Fascia, Open Approach (ICD-10-PCS; principal; 2018-02-27 10:00)
DX: I44.1 Atrioventricular block, second degree (principal); R00.1 Bradycardia, unspecified

== ENCOUNTER 2018-02-27 07:50 | Outpatient (CLI) | payer MEDICARE, BC ==
[2018-02-27] MEDS ORDERED: INDOCIN25 MG PO (08:06)
[2018-02-28 04:31] VITALS: BMI 27.2
[2018-02-28] MEDS ORDERED: KEFLEX500 MG PO (09:13)
== END 2018-02-27 15:21 | disposition home or self-care (01) ==
LOC: D.OPS 07:50
DX: I44.1 Atrioventricular block, second degree (principal); R00.1 Bradycardia, unspecified

== ENCOUNTER → 2018-03-09 11:08 | Outpatient (CLI) | payer MEDICARE, BC ==
[2018-02-28 04:31] VITALS: BMI 27.2
[~2018-03-09 11:08] MED LIST changes: +INDOCIN25 MG PO; +KEFLEX500 MG PO
== END | disposition home or self-care (01) ==
LOC: D.RAD 02-15 10:00
DX: N20.0 Calculus of kidney (principal)

== ENCOUNTER → 2018-06-06 16:58 | Outpatient (CLI) | payer MEDICARE, BC ==
[2018-02-28 04:31] VITALS: BMI 27.2
[2018-06-06 17:43] LABS: ALT (SGPT) 34 U/L (10-68); CHOL - HDL RATIO 6.1 ratio (2.3-4.9); CHOLESTEROL, TOTAL 188 mg/dL (0-200); CREATINE KINASE 553 UL (21-232); HDL CHOLESTEROL 31 mg/dL (32-96); LDL CHOLESTEROL 118 mg/dL (0-100); LDL-HDL RATIO 3.8 ratio (1.5-3.5); TRIGLYCERIDE 195 mg/dL (30-200)
[2018-06-06 17:50] LABS: CKMB 2.4 U/L (0.0-3.6)
== END | disposition home or self-care (01) ==
LOC: D.LABREF 16:58
PROVIDERS: Internal Medicine Cardiovascular Disease
DX: I25.10 Atherosclerotic heart disease of native coronary artery without angina pectoris (principal)

== ENCOUNTER → 2018-09-13 15:51 | Outpatient (CLI) | payer MEDICARE, BC ==
[2018-02-28 04:31] VITALS: BMI 27.2
== END | disposition home or self-care (01) ==
LOC: D.CT 15:51
DX: M25.561 Pain in right knee (principal)

== ENCOUNTER 2019-04-30 18:47 | Emergency (ER) | payer MEDICARE, BC ==
[~2019-04-30] VITALS: Ht 182.9 cm; Wt 102.3 kg
[2019-04-30 18:54] VITALS: Ht 182.9 cm; Wt 102.3 kg
[2019-04-30] MEDS ORDERED: GLUCOPHAGE500 MG PO (18:56)
[2019-04-30] MEDS ORDERED: CATAPRES0.1 MG PO (18:57)
[2019-04-30] MEDS ORDERED: TOPROL XL50 MG PO (18:57)
[2019-04-30] MEDS ORDERED: CYCLOBENZAPRINE10 MG PO (20:46)
[2019-04-30] MEDS ORDERED: ACETAMINOPHEN500 M1 PO (20:46)
[2019-04-30 21:10] LABS: BASOPHILS 0 % (0-2); EOSINOPHILS 2.3 % (0-7); HEMATOCRIT 37.8 % (42.0-54.0); HEMOGLOBIN 12.9 g/dL (13.5-17.5); IMMATURE GRANULOCYTES 0.2 % (0-5); LYMPHOCYTES 25.5 % (15-50); MCH 26.1 pg (26.0-34.0); MCHC 34.1 g/dL (31.0-37.0); MCV 76.5 fL (80.0-100.0); MONOCYTES 10.6 % (2-11); NEUTROPHILS 61.4 % (40-80); PLATELET COUNT 104 10x3/uL (130-400); RBC 4.94 10x6/uL (4.20-6.10); RDW 16.3 % (11.5-14.5); WBC 5.2 10x3/uL (4.8-10.8)
[2019-04-30 21:31] LABS: INR 1.05 (0.85-1.17); PROTIME 13.2 SECONDS (11.6-15.0)
[2019-04-30 21:32] LABS: APTT 29.1 SECONDS (22.8-39.4)
[2019-04-30 21:36] LABS: ALBUMIN 3.6 g/dL (3.4-5.0); BILIRUBIN - TOTAL 0.49 mg/dL (0.2-1.3); CALCIUM 9.4 mg/dL (8.5-10.1); CARBON DIOXIDE 30.9 mmol/L (21.0-32.0); CREATININE - SERUM 1.5 mg/dL (0.6-1.3); POTASSIUM - SERUM 3.9 mmol/L (3.5-5.1)
[2019-04-30 22:31] VITALS: BP 167/89
== END 2019-04-30 22:40 | disposition home or self-care (01) ==
LOC: D.ER 18:47
PROVIDERS: Family Medicine
DX: R07.89 Other chest pain (principal); R91.1 Solitary pulmonary nodule; T14.8XXA Other injury of unspecified body region, initial encounter; V89.2XXA Person injured in unspecified motor-vehicle accident, traffic, initial encounter; Y93.H2 Activity, gardening and landscaping; Y92.017 Garden or yard in single-family (private) house as the place of occurrence of the external cause; E11.9 Type 2 diabetes mellitus without complications

== ENCOUNTER 2019-06-02 22:20 | Emergency (ER) | payer MEDICARE, BC ==
[~2019-06-02] VITALS: Ht 182.9 cm; Wt 99.8 kg
[~2019-06-02 22:20] MED LIST changes: +ACETAMINOPHEN500 M1 PO; +CATAPRES0.1 MG PO; +CYCLOBENZAPRINE10 MG PO; +GLUCOPHAGE500 MG PO; +TOPROL XL50 MG PO
[2019-06-02 22:24] VITALS: Ht 182.9 cm; Wt 99.8 kg
[2019-06-02] MEDS ORDERED: PREDNISONE20 MG PO (23:02)
[2019-06-02] MEDS ORDERED: NAPROSYN500 MG PO (23:02)
[2019-06-02 23:38] VITALS: BP 122/76
== END 2019-06-02 23:38 | disposition home or self-care (01) ==
LOC: D.ER 22:20
DX: M10.071 Idiopathic gout, right ankle and foot (principal)

== ENCOUNTER → 2019-07-18 13:56 | Outpatient (CLI) | payer MEDICARE, BC ==
[2019-06-02 22:24] VITALS: BMI 30.6
[~2019-07-18 13:56] MED LIST changes: +NAPROSYN500 MG PO; +PREDNISONE20 MG PO
== END | disposition home or self-care (01) ==
LOC: D.CT 13:56
PROVIDERS: ATTEND Family Medicine
DX: S96.911A Strain of unspecified muscle and tendon at ankle and foot level, right foot, initial encounter (principal)

== ENCOUNTER → 2019-12-02 08:08 | Outpatient (CLI) | payer MEDICARE, BC ==
[2019-06-02 22:24] VITALS: BMI 30.6
[2019-12-02 08:35] LABS: BASOPHILS 0.2 % (0-2); EOSINOPHILS 1.1 % (0-7); HEMATOCRIT 41.7 % (42.0-54.0); HEMOGLOBIN 13.6 g/dL (13.5-17.5); IMMATURE GRANULOCYTES 0.4 % (0-5); LYMPHOCYTES 40.2 % (15-50); MCH 26.2 pg (26.0-34.0); MCHC 32.6 g/dL (31.0-37.0); MCV 80.2 fL (80.0-100.0); MEAN PLATELET VOLUME 9.2 fL (7.4-10.4); NEUTROPHILS 45.1 % (40-80); PLATELET COUNT 120 10x3/uL (130-400); RDW 15.9 % (11.5-14.5); WBC 4.6 10x3/uL (4.8-10.8)
[2019-12-02 08:49] LABS: ALBUMIN 4.1 g/dL (3.4-5.0); ANION GAP 12.8 mmol/L (8-16); BILIRUBIN - TOTAL 0.24 mg/dL (0.2-1.3); CREATININE - SERUM 1.5 mg/dL (0.6-1.3); POTASSIUM - SERUM 4.8 mmol/L (3.5-5.1); PROTEIN - SERUM 7.7 g/dL (6.4-8.2)
== END | disposition home or self-care (01) ==
LOC: D.LAB 08:08 → D.CT 08:08
PROVIDERS: ATTEND Family Medicine
DX: R91.1 Solitary pulmonary nodule (principal); E11.9 Type 2 diabetes mellitus without complications; I10 Essential (primary) hypertension; N18.9 Chronic kidney disease, unspecified; E78.5 Hyperlipidemia, unspecified

== ENCOUNTER → 2020-07-03 10:15 | Outpatient (CLI) | payer MEDICARE, BC ==
[2020-01-05 19:29] VITALS: BMI 30.6
--- NOTE | ~2020-07-03 | EC ---
PATIENT:REAGAN MURRELL DATE OF SERVICE: 07/03/20 SEX: M MEDICAL RECORD: [id number] DATE OF : 41 LOCATION:[facility] AGE OF PATIENT: 75 ADMISSION DATE: 07/03/20 REFERRING PHYSICIAN: INTERPRETING PHYSICIAN: VIANNEY MUNIZ MD ECHOCARDIOGRAM REPORT ECHO CHARGES 4 ECHO COMPLETE Date: 07/03/20 CLINICAL DIAGNOSIS: CAD/ASSESS EF/VALVES HX OF PACEMAKER ECHOCARDIOGRAPHIC MEASUREMENTS (adult normal given) AC root (d.<3.7cm) 4.8 cm LV Septum d (<1.2 cm> 1.3 cm Valve Excursion 2.2 cm LV Septum (systole) 1.6 cm Left Atria (s.<4.0cm> 4.6 cm LVPW d(<1.2cm) 1.6 cm RV (d.<2.3cm) 3.4 cm LVPW (sytole) 1.7 cm LV diastole(<5.6CM) 6.1 cm MV E-F(>70mm/sec) cm LV systole 5.0 cm LVOT Diameter 1.8 cm MV exc.(>10mm) cm Est.ejection fraction (50-75%) % DOPPLER: LVIT cm/sec A 51.0 cm/sec E 80.0 cm/sec LA cm/sec RVSP 14 mmHg LVOT 100 cm/sec AOP1/2T m/s Asc. Ao 103 cm/sec RVOT cm/sec RA cm/sec PA cm/sec AV Gradient Peak 4.26 mmHg AV Mean 2.23 mmHg AV Area 2.3 cm MV Gradient Peak 4.42 mmHg MV Mean 1.52 mmHg MV Area cm COMMENTS: Matrix Drier Tender: 2 GUERLINE ENGEL Army Helicopter Pilot: 3 Dr. Rojo TAPE# PACS Pericardial Effusion N DATE OF SERVICE: Adequate 2D, color flow imaging, spectral Doppler, and M-Mode. Mild LVH. LV internal dimension is dilated. LV is mildly globally hypokinetic with a recent EF estimated at 40%. Aortic valve is sclerotic. No evidence of stenosis by Doppler interrogation. Left atrium is dilated at 4.6 cm. Mitral valve shows no prolapse. Mild MR. Right-sided chambers are grossly normal. Trivial TR. ECHOCARDIOGRAM REPORT [id number] REAGAN MURRELL TRANSINT:[id number] Voice Confirmation ID: [id number] DOCUMENT ID: [id number] VIANNEY MUNIZ MD CC: [id number] DICTATION DATE: 07/07/20 1403 CREDIT RISK MANAGER: 07/07/20 2312 DEP CLI 07/03/20 [place] [id number] [place] [id number]
[~2020-07-03 10:15] MED LIST changes: +AMOXICILLIN875 MG PO; +AZITHROMYCIN500 MG PO
== END | disposition home or self-care (01) ==
LOC: D.HCCECHO 09:12
PROVIDERS: ATTEND Internal Medicine Interventional Cardiology
DX: I25.10 Atherosclerotic heart disease of native coronary artery without angina pectoris (principal)

== ENCOUNTER → 2020-08-06 10:09 | Outpatient (CLI) | payer MEDICARE, BC ==
[2020-01-05 19:29] VITALS: BMI 30.6
== END | disposition home or self-care (01) ==
LOC: D.CT 10:09
PROVIDERS: ATTEND Orthopaedic Surgery
DX: R22.9 Localized swelling, mass and lump, unspecified (principal)

== ENCOUNTER 2020-08-28 06:40 | Day surgery (SDC) | payer MEDICARE, BC ==
[2020-08-26 15:24] LABS: HEMATOCRIT 40.5 % (42.0-54.0); HEMOGLOBIN 12.8 g/dL (13.5-17.5); MCH 24.8 pg (26.0-34.0); MCHC 31.6 g/dL (31.0-37.0); MCV 78.3 fL (80.0-100.0); MEAN PLATELET VOLUME 8.9 fL (7.4-10.4); RBC 5.17 10x6/uL (4.20-6.10); RDW 16.4 % (11.5-14.5); WBC 4.3 10x3/uL (4.8-10.8)
[2020-08-26 16:01] LABS: ANION GAP 12.4 mmol/L (8-16); CALCIUM 9.3 mg/dL (8.5-10.1); CARBON DIOXIDE 25.7 mmol/L (21.0-32.0); CREATININE - SERUM 1.4 mg/dL (0.6-1.3); POTASSIUM - SERUM 4.1 mmol/L (3.5-5.1)
[~2020-08-28] VITALS: Ht 182.9 cm; Wt 105.7 kg
[~2020-08-28 06:40] MED LIST changes: +DIOVAN320 MG PO; +LIPITOR20 MG PO
[2020-08-28 06:56] VITALS: BP 161/95; Ht 182.9 cm; Wt 105.7 kg
--- NOTE | 2020-08-28 20:25 | NUR ---
1135 IV D/C'D WITH CANNULA INTACT. PRESSURE APPLIED AND DRSG PLACED. DISCHARGE INSTRUCTIONS GIVEN AND BOTH PT AND VERBALIZED AN UNDERSTANDING.
--- NOTE | 2020-08-30 11:03 | OP ---
PATIENT NAME: REAGAN MURRELL MEDICAL RECORD: [id number] :41 LOCATION:D.[facility] ADMISSION DATE: SURGEON: EMANUEL FIGUEREDO DO DATE OF OPERATION: 08/28/2020 PROCEDURE PERFORMED: Excision of mass of the left ankle. PREOPERATIVE DIAGNOSIS: Left ankle mass. POSTOPERATIVE DIAGNOSIS: Left ankle mass. INDICATIONS: Mr. Murrell is a 75-year-old male who has had this pain in the left ankle for quite some time. It limited his range of motion. It has been like that for years he says. I got an x-ray which showed what appeared to be a cartilaginous calcified mass in the ankle joint or anterior through the ankle joint. I got a CT confirming the same. I told him we would excise and it should improve his range of motion and help with his pain. He is aware of the risks including infection; bleeding; damage to nerves and vessels in the area, specifically the superficial peroneal nerve, the dorsalis pedis artery due to the fact it was right there where the mass was; continued pain; loss of range of motion; need for further surgery, and blood clots and even and he signed the consent. SURGEON: Emanuel Figueredo DO DESCRIPTION OF PROCEDURE: The patient was taken to the operative suite, laid in the supine position, and given general anesthetic and 2 g Ancef. The left lower extremity was prepped and draped in sterile fashion after he was sedated and LMA was placed. Time-out was performed and everyone was in agreement with the correct side, site, patient, and procedure. I then exsanguinated left lower extremity with an Esmarch and tourniquet was inflated to 350 mmHg and was up for 70 minutes. I then made an incision in line with the fourth ray of the foot over the ankle joint, careful dissection down to the mass. The mass was excised. It was quite large. It was a calcified mass. It was approximately 4 x 3 cm and 2 cm thick. It was removed and appeared to be very cartilaginous in nature. I then let the tourniquet down and had a small johana in the dorsalis pedis artery, which I sutured closed with 7-0 Prolene. I then irrigated the site and had closed the capsule with 2-0 Vicryl in a [id number]-[id number] fashion. I then closed the skin with 2-0 nylon in a horizontal mattress fashion. This was done by Guanakito Adams, certified surgical tech. He was then dressed with Adaptic, 4 x 4, ABD, Webril, Abelardo wrap and awakened and taken to recovery in stable condition. BLOOD LOSS: Minimal. COMPLICATIONS: None. NTS:[id number] Voice Confirmation ID: [id number] DOCUMENT ID: [id number] OPERATIVE REPORT [id number] REAGAN MURRELL MICHAEL D, DO at 1103 CC: [id number] DICTATION DATE: 08/28/20 1011 SVP DIGITAL AD SALES: 08/28/20 1835 [facility] [place] 08/28/20 [facility] [address] [place] [address]
== END 2020-08-28 11:50 | disposition home or self-care (01) ==
LOC: D.OPS 06:40 → D.PAN 08:45 → D.OPS 08:45
PROVIDERS: Anesthesiology; ATTEND Orthopaedic Surgery
DX: R22.42 Localized swelling, mass and lump, left lower limb (principal); F17.200 Nicotine dependence, unspecified, uncomplicated; E78.5 Hyperlipidemia, unspecified; I10 Essential (primary) hypertension; M67.871 Other specified disorders of synovium, right ankle and foot